=== PATIENT | male | born 1990 | race Caucasian/White ===

== ENCOUNTER 2016-11-05 06:43 | Emergency (ER) | payer OTHER ==
[2016-11-05 06:51] VITALS: TEMP 97.4
--- NOTE | 2016-11-05 07:39 | XR ---
EXAMINATION TYPE: XR hand complete RT, 3 VIEWS DATE OF EXAM ORDERED: 11/05/2016 HISTORY: Pain. COMPARISON: None. FINDINGS: The fingers are flexed in all projections. This makes assessment of the joint spaces diffi cult. No fracture, dislocation or other acute osseous lesion is seen. IMPRESSION: NO ACUTE OSSEOUS LESION.
--- NOTE | 2016-11-05 07:41 | ED ---
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 He complains of pain to the dorsal aspect of his right hand in right wrist area. He states he occasionally tries to extend his hand. He denies any other injuries such as head neck or back pain no other extremity injury. He had no loss of consciousness. He is right-hand dominant. MD Complaint: Injury to:: right, hand - Related Data Previous Rx's Medication Instructions Recorded Ibuprofen 800 mg PO Q6HR PRN #20 tablet 11/05/16 Allergies Allergy/AdvReac Type Severity Reaction Status Date / Time bee venom protein (honey bee) Allergy Unknown Verified 11/05/16 07:30 Review of Systems ROS Statement: Those systems with pertinent positive or pertinent negative responses have been documented in the HPI. ROS Other: All systems not noted in ROS Statement are negative. Past Medical History Past Medical History: No Reported History History of Any Multi-Drug Resistant Organisms: None Reported Past Surgical History: No Surgical Hx Reported Past Psychological History: Bipolar Smoking Status: Current every day smoker Past Alcohol Use History: Occasional Past Drug Use History: Marijuana General Exam - General Exam Comments Initial Comments: This is a well-developed well-nourished awake alert oriented 3 male his Deepa Coma Scale of 15 Limitations: no limitations General appearance: alert, in no apparent distress Head exam: Present: atraumatic, normocephalic, normal inspection Eye exam: Present: normal appearance, PERRL, EOMI. Absent: scleral icterus, conjunctival injection, periorbital swelling ENT exam: Present: normal exam, mucous membranes moist Neck exam: Present: normal inspection. Absent: tenderness, meningismus, lymphadenopathy Respiratory exam: Present: normal lung sounds bilaterally. Absent: respiratory distress, wheezes, rales, rhonchi, stridor Cardiovascular Exam: Present: regular rate, normal rhythm, normal heart sounds. Absent: systolic murmur, diastolic murmur, rubs, gallop, clicks GI/Abdominal exam: Present: soft, normal bowel sounds. Absent: distended, tenderness, guarding, rebound, rigid Extremities exam: Present: tenderness, normal capillary refill, other ( Examination of the right upper extremity demonstrates slight edema over the dorsal right hand no obvious open wounds no step-off or crepitation or tenderness palpation is also tenderness over the right snuffbox with no evidence of gross deformity. No sensorimotor or vascular deficits proximal to the wrist is no evidence of any injury with no tenderness to palpation with full range of motion.). Absent: pedal edema, joint swelling, calf tenderness Back exam: Present: normal inspection Neurological exam: Present: alert, oriented X3, CN II-XII intact Psychiatric exam: Present: normal affect, normal mood Skin exam: Present: warm, dry, intact, normal color. Absent: rash Course Vital Signs 11/05/16 06:49 Temperature 97.4 F L Pulse Rate 68 Respiratory 18 Rate Blood Pressure 128/76 O2 Sat by Pulse 98 Oximetry - Reevaluation(s) Reevaluation #1: 11/05/16 07:41 We did discuss smoking cessation. This lasted 3.1 minutes. Discussed risks and benefits. Procedures - Procedures Initial comment: I did place a short arm thumb spica OCL splint on the patient's right wrist. There was a good neurovascular exam afterwards. Patient tolerated this well. Medical Decision Making - Medical Decision Making (The imaging and reports patient demonstrates no obvious fracture clinically however he does demonstrate a scaphoid injury. Patient was placed in a thumb spica short arm OCL he will be referred to orthopedic surgery. He will receive appropriate pain medication. - Radiology Data Radiology results: report reviewed (I did the imaging a reports no evidence of acute fractures.), image reviewed Disposition Clinical Impression: Scaphoid fracture, wrist, closed, Sprain and strain of wrist Disposition: HOME SELF-CARE Condition: Good Instructions: Wrist Injury (ED), Scaphoid Fracture (ED) Prescriptions: Ibuprofen 800 mg PO Q6HR PRN #20 tablet PRN Reason: Pain Referrals: None,Stated [Primary Care Provider] - 1-2 days Migel Skniner MD [STAFF PHYSICIAN] - 1-2 days
[2016-11-05 08:25] VITALS: BP 124/60; PULSE 63; RESP 16
== END 2016-11-05 08:25 | disposition home or self-care (01) ==
LOC: EC 06:43
DX: S62.001A Unspecified fracture of navicular [scaphoid] bone of right wrist, initial encounter for closed fracture (principal); R40.2412 Glasgow coma scale score 13-15, at arrival to emergency department; F17.200 Nicotine dependence, unspecified, uncomplicated; Z91.030 Bee allergy status; W10.9XXA Fall (on) (from) unspecified stairs and steps, initial encounter
CPT/HCPCS: 29125; 99283

== ENCOUNTER 2024-11-01 10:40 | Emergency (ER) | payer OTHER ==
--- NOTE | 2024-11-01 11:03 | ED ---
Extremity Problem HPI - General Stated complaint: Right leg injury Time Seen by Provider: 11/01/24 11:02 Source: patient, RN notes reviewed Mode of arrival: ambulatory Limitations: no limitations - History of Present Illness Initial comments: 34-year-old male presented to ER for evaluation of right knee pain. Patient reports he was running around with his significant other's children the other day and attempted to jump over a stump. He states upon landing on the ground his right knee "shifted". He states since then he has been experiencing pain exacerbated by ambulation. He denies paresthesias to extremity. Patient has taken [id number] Tylenol and icing injury without relief of pain. He denies any other injuries or complaints. - Related Data Previous Rx's Medication Instructions Recorded Ibuprofen 800 mg PO Q6HR PRN #20 tablet 11/05/16 Allergies Allergy/AdvReac Type Severity Reaction Status Date / Time bee venom protein (honey bee) Allergy Unknown Verified 11/01/24 11:43 Review of Systems ROS Statement: Those systems with pertinent positive or pertinent negative responses have been documented in the HPI. ROS Other: All systems not noted in ROS Statement are negative. Past Medical History Past Medical History: No Reported History History of Any Multi-Drug Resistant Organisms: None Reported Past Surgical History: No Surgical Hx Reported Past Psychological History: Bipolar Past Alcohol Use History: Occasional Past Drug Use History: Marijuana General Exam - General Exam Comments Initial Comments: Visual Physical Exam Vital signs reviewed General: Well-appearing, nontoxic, no acute distress. Head: Normocephalic, atraumatic Eyes: PERRLA, EOMI ENT: Airway patent Chest: Nonlabored breathing Skin: No visual rash, normal skin tone Neuro: Alert and oriented 3 Musculoskeletal: No gross abnormalities Limitations: no limitations General appearance: alert, in no apparent distress Respiratory exam: Present: normal lung sounds bilaterally. Absent: respiratory distress, wheezes, rales, rhonchi, stridor Cardiovascular Exam: Present: regular rate, normal rhythm, normal heart sounds. Absent: systolic murmur, diastolic murmur, rubs, gallop, clicks Extremities exam: Present: tenderness (Normal joint line. Joint effusion noted), normal capillary refill (2+ right DP/PT pulses), other ( Limited active range of motion given pain and swelling. Positive Ese with external rotation) Neurological exam: Present: alert, oriented X3, CN II-XII intact Skin exam: Present: warm, dry, intact, normal color. Absent: rash Course Vital Signs 11/01/24 11/01/24 11:39 12:57 Temperature 97.8 F 97.9 F Pulse Rate 87 82 Respiratory 22 18 Rate Blood Pressure 118/72 115/86 O2 Sat by Pulse 99 99 Oximetry Medical Decision Making - Medical Decision Making I performed the quick note portion of this chart. Electronically signed by Rosalie Cage PA-C Was pt. sent in by a medical professional or institution (LILO Smith, POLICY SERVICE COORDINATOR, urgent care, hospital, or correction...) When possible be specific @ -No Did you speak to anyone other than the patient for history (EMS, parent, family, police, friend...)? What history was obtained from this source @ -No Did you review nursing and triage notes (agree or disagree)? Why? @ -I reviewed and agree with nursing and triage notes Were old charts reviewed (outside hosp., previous admission, EMS record, old EKG, old radiological studies, urgent care reports/EKG's, correction records)? Report findings @ -No old charts were reviewed Differential Diagnosis (chest pain, altered mental status, abdominal pain women, abdominal pain men, vaginal bleeding, weakness, fever, dyspnea, syncope, headache, dizziness, GI bleed, back pain, seizure, CVA, palpatations, mental health, musculoskeletal)? @ -Differential Musculoskeletal: Muscular strain, contusion, ligament sprain, fracture, arthritis, septic arthritis, bursitis, cellulitis, muscle spasm, nerve compression, DVT, arterial occlusion, herpes zoster, electrolyte abnormality, tumor.... This is not meant to be in all inclusive list EKG interpreted by me (3pts min.). @ -None done X-rays interpreted by me (1pt min.). @ -Right knee x-ray interpreted by me remarkable for mild joint effusion. No acute fractures or dislocation CT interpreted by me (1pt min.). @ -None done U/S interpreted by me (1pt. min.). @ -None done What testing was considered but not performed or refused? (CT, X-rays, U/S, labs)? Why? @ -None What meds were considered but not given or refused? Why? @ -None Did you discuss the management of the patient with other professionals (professionals i.e. , PA, POLICY SERVICE COORDINATOR, lab, RT, psych nurse, public health social worker, deputy sheriff generalist, teacher, loan workout officer, vocational case manager)? Give summary @ -No Was smoking cessation discussed for >3mins.? @ -No Was critical care preformed (if so, how long)? @ -No Were there social determinants of health that impacted care today? How? (Homelessness, low income, unemployed, alcoholism, drug addiction, transportation, low edu. Level, literacy, decrease access to med. care, detention, rehab)? @ -No Was there de-escalation of care discussed even if they declined (Discuss DNR or withdrawal of care, Hospice)? DNR status @ -No What co-morbidities impacted this encounter? (DM, HTN, Smoking, COPD, CAD, Cancer, CVA, ARF, Chemo, Hep., AIDS, mental health diagnosis, sleep apnea, morbid obesity)? @ -None Was patient admitted / discharged? Hospital course, mention meds given and route, prescriptions, significant lab abnormalities, going to OR and other pertinent info. @ -Discharge. 34-year-old male presented the ER for evaluation of right knee pain. Vital signs stable. Patient is neurovascularly intact. There is mild joint effusion noted to right knee. X-rays negative for acute fractures or dislocations. Pain believed to be soft tissue in nature. P.O. ibuprofen provided for pain control in the emergency department. Patient placed in knee immobilizer and provided crutches. Patient will be discharged in stable condition advised to follow-up with [facility], referral given. Conservative treatment options discussed. Patient discharged in stable condition. Return parameters discussed. Patient verbally expressed understanding agreement care plan. Case discussed with ED attending, Dr. Anderson. Undiagnosed new problem with uncertain prognosis? @ -No Drug Therapy requiring intensive monitoring for toxicity (Heparin, Nitro, Insulin, Cardizem)? @ -No Were any procedures done? @ -No Diagnosis/symptom? @ -Knee sprain/joint effusion Acute, or Chronic, or Acute on Chronic? @ -Acute Uncomplicated (without systemic symptoms) or Complicated (systemic symptoms)? @ -Uncomplicated Side effects of treatment? @ -No Exacerbation, Progression, or Severe Exacerbation? @ -No Poses a threat to life or bodily function? How? (Chest pain, [place], [place], pneumonia, PE, COPD, DKA, ARF, appy, cholecystitis, CVA, Diverticulitis, Homicidal, Suicidal, threat to staff... and all critical care pts) @ -No - Radiology Data Radiology results: report reviewed, image reviewed Disposition Clinical Impression: Knee sprain Disposition: HOME SELF-CARE Condition: Stable Instructions (If sedation given, give patient instructions): Knee Sprain (ED) Additional Instructions: Follow-up with orthopedics. Return to the ER for any new or worsening concerns. Is patient prescribed a controlled substance at d/c from ED?: No Referrals: None,Stated [Primary Care Provider] - 1-2 days Shaq Pike DO [Doctor of Osteopathic Medicine] - 1-2 days Time of Disposition: 12:36
--- NOTE | 2024-11-01 12:00 | XR ---
EXAMINATION TYPE: XR knee complete RT DATE OF EXAM: 11/01/2024 11:55 AM COMPARISON: None. CLINICAL INDICATION: Male, 34 years old with history of pain, pain TECHNIQUE: 3 view(s) obtained. FINDINGS: Joint spaces are preserved. No acute fracture or dislocation evident. Small joint effusion may be pre sent. Follow-up exam can be performed 7-10 days from acute trauma for continued pain. MRI can be utilized f or soft tissue evaluation. IMPRESSION: 1. May be a small joint effusion with suprapatellar joint space. 2. No acute osseous abnormality radiographically apparent. [facility], , 11/01/2024 11:58 AM
[2024-11-01] MEDS: IBUPROFEN 600 MG TAB PO STA (12:13)
[2024-11-01 13:00] VITALS: BP 115/86; PULSE 82; RESP 18; TEMP 97.9
== END 2024-11-01 12:56 | disposition home or self-care (01) ==
LOC: EC 10:40
DX: S83.91XA Sprain of unspecified site of right knee, initial encounter (principal); Z91.030 Bee allergy status; W01.0XXA Fall on same level from slipping, tripping and stumbling without subsequent striking against object, initial encounter; Y93.02 Activity, running
CPT/HCPCS: 73562; 99283; L3670